=== PATIENT | male | born 2005 | race Caucasian/White ===

== ENCOUNTER 2025-02-23 00:19 | Emergency (ER) | payer BC, SELFPAY ==
[2025-02-23 00:27] VITALS: BP 133/80
[2025-02-23 00:44] VITALS: BMI 20.5
[2025-02-23] MEDS: TYLENOL 1000 MG PO (01:00)
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
[2025-02-23 02:00] VITALS: BP 126/64
== END 2025-02-23 02:48 | disposition home or self-care (01) ==
LOC: EMR 00:19
PROVIDERS: EMERGENCY PHYSICIAN Emergency Medicine
DX: S16.1XXA Strain of muscle, fascia and tendon at neck level, initial encounter (principal); V48.0XXA Car driver injured in noncollision transport accident in nontraffic accident, initial encounter; Y92.488 Other paved roadways as the place of occurrence of the external cause
CPT/HCPCS: 99284; 71046; 72125